=== PATIENT | female | born 1970 | race Two or more races ===

== ENCOUNTER 2017-01-15 02:12 | Day surgery (SDC) | payer OTHER ==
[~2017-01-15] VITALS: Ht 170.2 cm; Wt 70.5 kg
[2017-01-15] MEDS ORDERED: ONDANSETRON 4MG/2ML VIAL (J2405) IV ONE (03:30)
[2017-01-15] MEDS ORDERED: NS 1,000 ML IV ONE (03:30)
[2017-01-15] MEDS ORDERED: KETOROLAC 30 MG/ML VIAL (J1885) IV ONE (03:30)
[2017-01-15] MEDS ORDERED: MORPHINE 4 MG/ML 1ML SYRINGE IV PRN (03:30)
[2017-01-15 03:42] LABS: MEAN CORPUSCULAR HEMOGLOBIN 31.2 pg (27.0-33.0); MEAN CORPUSCULAR HGB CONC 34.3 g/dl (32.0-36.5); MEAN CORPUSCULAR VOLUME 91.2 fl (80.0-96.0); PLATELET COUNT, AUTOMATED 379 10^3/uL (150-450); RED CELL DISTRIBUTION WIDTH 12.2 % (11.5-14.5); WHITE BLOOD COUNT 25.4 10^3/uL (4.0-10.0)
[2017-01-15 03:43] LABS: ADD MANUAL DIFFER YES; DIFF SLIDE NUMBER 80
[2017-01-15] MEDS: MORPHINE 2 MG/ML 1ML SYRINGE IV PRN ×3 (03:45→09:34)
--- NOTE | 2017-01-15 03:50 | REPUSA ---
CLINICAL HISTORY: Abdominal pain. TECHNIQUE: Multiple axial, sagittal and coronal CT images were obtained through the abdomen and pelvi s without administration of oral or IV contrast material. COMMENTS: Comparison to the prior exam on 10/31/2015. Interval appearance of 4.5 mm obstructing stone of the left ureterovesical junction. Mild left hydrou reteronephrosis. Diffuse mesenteric thickening and soft tissue nodularity. 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 The liver is of uniform attenuation without mass or defect. There is no intra or extrahepatic biliary ductal dilatation. The spleen is normal. The gallbladder is within normal limits. The pancreas is of normal contour and attenuation characteristics. There is no evidence of adrenal mass. There is no evidence for appendicitis. There is no bowel wall thickening. No evidence for small or la rge bowel obstruction. There is no evidence of abdominal ascites or lymphadenopathy. There is no evidence of intrinsic or extrinsic bladder mass. There is no pelvic ascites or lymphadeno serafin. Uncomplicated diverticulosis of the colon. Images of the lung bases show no evidence of pleural or parenchymal mass. There are no pleural effusi ons. The bony structures are free of lytic or blastic lesions. Multilevel degenerative changes are seen in volving the thoracolumbar spine. Scattered calcifications are seen involving the aorta and major branches compatible with atherosclero sis. IMPRESSION: Obstructing stone of the left ureterovesical junction. Mild left hydroureteronephrosis. 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 Findings were not present on prior exam. Thank you for your kind referral of this patient.
[2017-01-15 04:11] LABS: ALBUMIN 4.1 GM/DL (3.2-5.2); ALBUMIN/GLOBULIN RATIO 1.24 (1.00-1.93); BILIRUBIN,DIRECT 0.2 MG/DL (0.0-0.2); BILIRUBIN,TOTAL 0.8 MG/DL (0.2-1.0); CALCIUM LEVEL 9.4 MG/DL (8.5-10.1); CREATININE FOR GFR 1.9 MG/DL (0.55-1.02); GLOMERULAR FILTRATION RATE 30.3 (>58); TOTAL PROTEIN 7.4 GM/DL (6.4-8.2)
[2017-01-15] MEDS ORDERED: CIPROFLOXACIN 400 MG in APPROPRIATE DILUENT 1 EA IV ONE (05:00)
[2017-01-15] MEDS ORDERED: TAMSULOSIN 0.4 MG CAP PO ONE (05:15)
[2017-01-15 09:15] VITALS: BP 134/84
[2017-01-15] MEDS: D5W/0.45% SODIUM CHLORIDE 1,000 ML IV SCH ×2 (09:33→16:11)
[2017-01-15] MEDS ORDERED: ONDANSETRON 4MG/2ML VIAL (J2405) IV PRN (10:00)
[2017-01-15] MEDS ORDERED: MORPHINE 2 MG/ML 1ML SYRINGE IV PRN (10:00)
[2017-01-15] MEDS ORDERED: ALPRAZolam 0.5 MG TAB PO PRN (14:30)
[2017-01-15] MEDS ORDERED: LORazepam 2 MG/ML VIAL (J2060) IV PRN (14:45)
[2017-01-15 16:00] VITALS: BP 116/72
[2017-01-15] MEDS ORDERED: CONRAY-60 60% 50ML VIAL (Q9961) As Ordered ONE (16:39)
[2017-01-15] MEDS ORDERED: BACT800T5 PO (16:59)
--- NOTE | 2017-01-15 18:20 | HPE ---
DATE OF ADMISSION: 01/15/2017 Time the patient was seen was 07:00 a.m. REASON FOR ADMISSION: Kidney stone with leukocytosis. The patient is a 46-year-old female who has a several day history of left lower back pain. She has noticed the pain every morning and has had some vomiting. The pain got so severe that she came to the emergency room today and a CT scan of the abdomen and pelvis showed a 4.5 mm left ureteral vesicle junction stone with mild left hydroureteronephrosis. The patient's pain was no better after morphine and she did have a white blood count of 25.4. After discussing all of the different options, alternatives, risks and benefits, it was decided to admit her for observation and then possibly to bring her to the operating room for ureteroscopic stone manipulation if she did not pass the stone prior to that. The CT scan showed no other significant stone. She denies any gross hematuria. She did have two stones which passed spontaneously a few years ago. She denies any burning with urination or problems with recurrent urinary tract infections. She denies any significant irritative or obstructive voiding symptoms. PAST MEDICAL HISTORY: Irritable bowel syndrome (IBS). PAST SURGICAL HISTORY: Laparoscopy to rule out endometriosis. MEDICATIONS: Aleve. ALLERGIES: No known drug allergies. SOCIAL HISTORY: She is a former smoker years ago. She drinks alcohol extremely rarely because this does hurt her abdomen. She denies any IV drug use. FAMILY HISTORY: Her father is 75 with a history of bladder cancer. REVIEW OF SYSTEMS: The 12-system review is negative except for severe abdominal pain which she has had for many years. She has seen gastroenterology (GI) specialists and has had colonoscopies and endoscopies and her diagnosis at this time is irritable bowel syndrome (IBS). PHYSICAL EXAMINATION: Her maximum temperature (T-max) is 98.8. Her pulse is 55. Her blood pressure is 124/77 and her respiratory rate is 18. This is a well-developed, well-nourished female in the emergency room in obvious pain, even after being given morphine 2 mg IV, she seems extremely uncomfortable. She is alert and oriented times three. Her head is normocephalic, atraumatic. Her eyes are pupils are equal, round, and reactive to light and accommodation (PERRLA) and extraocular muscles intact (EOMI). Her neck is supple and she has no significant supraclavicular or cervical adenopathy. Her heart has a regular rate and rhythm. Her lungs are clear to auscultation and percussion. She has no real costovertebral angle (CVA) tenderness on examination, but she does have some left lower back tenderness and some left lower abdominal tenderness. There is no rebound or guarding. Her extremities show no cyanosis, clubbing or edema. LABORATORY DATA: Her white blood count is elevated at 25.4. A urinalysis shows 4 white blood cells and 10 red blood cells per high-powered field and a urine culture is pending. Her BUN is 26 and her creatinine is elevated at 1.9. CT scan of the abdomen and pelvis does show mild left hydroureteronephrosis with a 4.5 mm left ureteral vesicle junction stone. 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 DISCUSSION: We discussed these findings at length in the office today and because she is still in significant pain, has an elevated white count of 25.4 and an elevated creatinine of 1.9 with vomiting and no pain relief after several doses of morphine, it was decided to bring her to the operating room. We will admit her for observation now and continue antibiotic therapy, IV hydration, pain management, and strain her urine until we can bring her to the operating room. We discussed that we would do a cystoscopy and stent placement and we discussed exactly how this is done. IMPRESSION: 1. A 4.5 mm left ureteral vesicle junction stone but with a white blood count of 25.4, acute renal failure with a creatinine of 1.9, vomiting, and unremitting pain. 2. Longstanding history of abdominal pain with irritable bowel syndrome (IBS) with a CT scan showing mesenteric panniculitis. 3. History of kidney stones several years ago and two passed spontaneously but no other stones were seen on the CAT scan. PLAN: 1. Admit the patient now for observation with IV hydration, antibiotic therapy, and pain medication. We will plan on bringing her to the operating room this afternoon for stone management. 2. The patient to discuss with her gastroenterology (GI) specialist the findings of the mesenteric panniculitis and other findings on the CT scan. 3. Await final urine culture. ADDENDUM: 01/15/2017 At 05:12 p.m., the patient had been on pediatrics waiting to go to the operating room today and she did end up passing her 4.5 mm left ureterovesical junction (UVJ) stone. The stone will be sent for analysis. She will be discharged home on Bactrim DS one tablet by mouth twice a day for seven days with instructions to followup in the office in one month to discuss stone prevention.
[2017-01-28 10:37] LABS: Size 4x3x3 mm (.)
== END 2017-01-15 17:40 | disposition home or self-care (01) ==
LOC: M ED 02:12 → M SDC 07:25 → M OPCLIPED 07:25 → M PED 09:07 → M SDC 17:40
PROVIDERS: ATTEND Specialist
DX: N20.1 Calculus of ureter (principal); Z53.09 Procedure and treatment not carried out because of other contraindication; N17.9 Acute kidney failure, unspecified; D72.829 Elevated white blood cell count, unspecified; Z87.891 Personal history of nicotine dependence

== ENCOUNTER 2022-07-23 04:13 | Observation (INO) | payer OTHER ==
[~2022-07-23] VITALS: Ht 170.2 cm; Wt 63.4 kg
[~2022-07-23 04:13] MED LIST: BACT800T5 PO
[2022-07-23 05:00] LABS: BASO # 0.1 10^3/uL (0.0-0.2); BASO % 1.1 % (0.0-1.0); EOS # 0.3 10^3/uL (0.0-0.5); HEMATOCRIT 45.2 % (36.0-47.0); HEMOGLOBIN 14.6 g/dl (12.0-15.5); LYMPH # 1.4 10^3/uL (1.5-5.0); LYMPH % 16.1 % (24.0-44.0); MEAN CORPUSCULAR HEMOGLOBIN 30.5 pg (27.0-33.0); MEAN CORPUSCULAR HGB CONC 32.3 g/dl (32.0-36.5); MEAN CORPUSCULAR VOLUME 94.6 fl (80.0-96.0); MONO # 0.6 10^3/uL (0.0-0.8); MONO % 7.5 % (2.0-8.0); NEUTROPHILS # 6.1 10^3/uL (1.5-8.5); NEUTROPHILS % 72.1 % (36.0-66.0); PLATELET COUNT, AUTOMATED 372 10^3/uL (150-450); RED BLOOD COUNT 4.78 10^6/uL (4.00-5.40); WHITE BLOOD COUNT 8.4 10^3/uL (4.0-10.0)
[2022-07-23] MEDS ORDERED: ONDANSETRON 4MG 2ML VIAL IV ONE (05:05)
[2022-07-23] MEDS ORDERED: MORPHINE 4 MG/ML 1ML VIAL IV PRN (05:05)
[2022-07-23 05:20] LABS: LIPASE 68 U/L (12-53)
[2022-07-23 05:23] LABS: ALBUMIN 4.2 G/DL (3.2-5.2); ALKALINE PHOSPHATASE 115 U/L (46-116); ALT/SGPT 28 U/L (7.0-40); AST/SGOT 29 U/L (<34); BILIRUBIN,DIRECT 0.1 MG/DL (<0.4); BILIRUBIN,TOTAL 0.4 MG/DL (0.3-1.2); BLOOD UREA NITROGEN 16 MG/DL (9-23); CARBON DIOXIDE LEVEL 28 MMOL/L (20-31); CHLORIDE LEVEL 109 MMOL/L (98-107); CREATININE FOR GFR 0.98 MG/DL (0.55-1.30); GLOMERULAR FILTRATION RATE > 60.0 (>51); GLUCOSE, FASTING 101 MG/DL (60-100); SODIUM LEVEL 142 MMOL/L (136-145); TOTAL PROTEIN 6.8 G/DL (5.7-8.2)
[2022-07-23] MEDS: GASTROGRAFIN SOLUTION 30ML PO SCH ×2 (06:27→06:28)
[2022-07-23] MEDS ORDERED: ISOVUE-370 76% 100ML VIAL As Ordered ONE (07:09)
[2022-07-23] MEDS ORDERED: HOME MED LIST COMPLETE! XX SCH (09:50)
[2022-07-23 10:28] LABS: RSV AMPLIFICATION NEGATIVE (NEGATIVE)
[2022-07-23] MEDS ORDERED: PERCOCET 5MG/325MG TAB PO PRN (11:00)
[2022-07-23] MEDS ORDERED: ACETAMINOPHEN TAB 650MG DOSE (2X325MG) PO PRN (11:00)
[2022-07-23 12:15] VITALS: BP 124/72
[2022-07-23 15:24] LABS: THYROID STIMULATING HORMONE 1.538 uIU/ML (0.55-4.78); TOTAL T3 112.4 NG/DL (60.0-181.0)
[2022-07-23 15:25] LABS: FREE T4 1.21 NG/DL (0.89-1.76)
[2022-07-23 22:00] VITALS: BP 120/76
[2022-07-24 06:00] VITALS: BP 119/63
[2022-07-24 08:11] LABS: BASO # 0.1 10^3/uL (0.0-0.2); BASO % 1.2 % (0.0-1.0); EOS # 0.1 10^3/uL (0.0-0.5); EOS % 0.8 % (0.0-3.0); HEMATOCRIT 43.7 % (36.0-47.0); HEMOGLOBIN 14.4 g/dl (12.0-15.5); LYMPH # 1.2 10^3/uL (1.5-5.0); LYMPH % 13.6 % (24.0-44.0); MEAN CORPUSCULAR HEMOGLOBIN 30.8 pg (27.0-33.0); MEAN CORPUSCULAR VOLUME 93.4 fl (80.0-96.0); MONO # 0.5 10^3/uL (0.0-0.8); MONO % 5.5 % (2.0-8.0); NEUTROPHILS # 6.7 10^3/uL (1.5-8.5); NEUTROPHILS % 78.7 % (36.0-66.0); PLATELET COUNT, AUTOMATED 368 10^3/uL (150-450); RED BLOOD COUNT 4.68 10^6/uL (4.00-5.40); WHITE BLOOD COUNT 8.5 10^3/uL (4.0-10.0)
[2022-07-24 08:46] LABS: BLOOD UREA NITROGEN 12 MG/DL (9-23); CALCIUM LEVEL 9.2 MG/DL (8.5-10.1); CARBON DIOXIDE LEVEL 27 MMOL/L (20-31); CHLORIDE LEVEL 108 MMOL/L (98-107); CREATININE FOR GFR 0.86 MG/DL (0.55-1.30); GLOMERULAR FILTRATION RATE > 60.0 (>51); GLUCOSE, FASTING 95 MG/DL (60-100); POTASSIUM SERUM 4.2 MMOL/L (3.5-5.1); SODIUM LEVEL 137 MMOL/L (136-145)
[2022-07-24] MEDS ORDERED: DICYCLOMINE 10 MG CAP PO SCH (09:00)
[2022-07-24] MEDS ORDERED: LIDOCAINE 1% MDV 20ML VIAL As Ordered ONE (12:54)
[2022-07-24 14:00] VITALS: BP 121/82
[2022-07-24] MEDS: METAMUCIL (PSYLLIUM) PACKET PO SCH (15:39)
[2022-07-24] MEDS ORDERED: DICYCLOMINE 10 MG CAP PO PRN (21:00)
[2022-07-24] MEDS ORDERED: AMITRIPTYLINE 25MG TABLET PO SCH (21:00)
[2022-07-24 21:30] VITALS: BP 119/79
[2022-07-25 05:29] VITALS: BP 118/78
[2022-07-25 07:38] LABS: HEMATOCRIT 44.6 % (36.0-47.0); HEMOGLOBIN 14.7 g/dl (12.0-15.5); MEAN CORPUSCULAR HEMOGLOBIN 31.2 pg (27.0-33.0); MEAN CORPUSCULAR VOLUME 94.7 fl (80.0-96.0); RED BLOOD COUNT 4.71 10^6/uL (4.00-5.40); WHITE BLOOD COUNT 6.4 10^3/uL (4.0-10.0)
[2022-07-25 07:41] LABS: PLATELET COUNT, AUTOMATED 245 10^3/uL (150-450)
[2022-07-25] MEDS: METAMUCIL (PSYLLIUM) PACKET PO SCH (08:58)
[2022-07-25] MEDS ORDERED: DICY1CAP8 PO (09:51)
[2022-07-25] MEDS ORDERED: AMIT25TA17 PO (09:51)
[2022-07-25] MEDS ORDERED: META1POW PO (09:51)
== END 2022-07-25 11:40 | disposition home or self-care (01) ==
LOC: M ED 04:13 → M ED INP 10:54 → ENRESERV 11:27 → M MS5PR 12:00
PROVIDERS: ADMIT Internal Medicine; ATTEND Internal Medicine
DX: C82.03 Follicular lymphoma grade I, intra-abdominal lymph nodes (principal); R10.9 Unspecified abdominal pain; R59.0 Localized enlarged lymph nodes; R91.1 Solitary pulmonary nodule; E04.1 Nontoxic single thyroid nodule; K58.8 Other irritable bowel syndrome; M51.17 Intervertebral disc disorders with radiculopathy, lumbosacral region; R63.4 Abnormal weight loss; F12.10 Cannabis abuse, uncomplicated
CPT/HCPCS: 36415; 49180; 71250; 74177; 76536; 77012; 80048; 80076; 81001; 83690; 84145; 84439; 84443; 84480; 85025; 85027; 87631; 88305; 93041; 96374; 96375; 99285; J2405; Q9963; Q9967

== ENCOUNTER → 2022-07-31 | Outpatient (CLI) | payer OTHER ==
[~2022-07-31] MED LIST changes: +AMIT25TA17 PO; +DICY1CAP8 PO; +META1POW PO
[2022-07-31 17:19] LABS: HEMOGLOBIN A1c 5.4 % (4.0-6.0)
[2022-07-31 17:32] LABS: CHOLESTEROL RISK RATIO 4.18 (<5); HDL CHOLESTEROL 49.2 MG/DL (>40); LDL CHOLESTEROL 117.2 MG/DL (<100); NON-HDL-C 156.8 MG/DL
== END ==
LOC: M PLALAB 15:32
PROVIDERS: ATTEND Student in an Organized Health Care Education/Training Program
DX: Z76.89 Persons encountering health services in other specified circumstances (principal)

== ENCOUNTER → 2022-08-28 | Outpatient (CLI) | payer OTHER ==
[~2022-08-28] MED LIST changes: +HYDR-3713 PO; +LIDOCAINE 1% MDV 20ML VIAL As Ordered ONE; +MIRA3350 PO; +ONDA4TAB6 PO
[2022-08-28 09:40] VITALS: BP 150/86
[2022-08-28 10:09] LABS: BASO # 0.1 10^3/uL (0.0-0.2); BASO % 1.4 % (0.0-1.0); EOS # 0.1 10^3/uL (0.0-0.5); HEMATOCRIT 42.3 % (36.0-47.0); HEMOGLOBIN 13.9 g/dl (12.0-15.5); LYMPH % 14.7 % (24.0-44.0); MEAN CORPUSCULAR HGB CONC 32.9 g/dl (32.0-36.5); MEAN CORPUSCULAR VOLUME 94.2 fl (80.0-96.0); MONO # 0.3 10^3/uL (0.0-0.8); MONO % 4.8 % (2.0-8.0); NEUTROPHILS # 5.4 10^3/uL (1.5-8.5); NEUTROPHILS % 77.8 % (36.0-66.0); PLATELET COUNT, AUTOMATED 347 10^3/uL (150-450); RED BLOOD COUNT 4.49 10^6/uL (4.00-5.40); WHITE BLOOD COUNT 6.9 10^3/uL (4.0-10.0)
== END ==
LOC: M IRPRO 08:25
PROVIDERS: ATTEND Internal Medicine Medical Oncology
DX: C85.80 Other specified types of non-Hodgkin lymphoma, unspecified site (principal)

== ENCOUNTER 2022-08-29 21:43 | Emergency (ER) | payer OTHER ==
[~2022-08-29] VITALS: Ht 167.6 cm; Wt 65.2 kg
[~2022-08-29 21:43] MED LIST changes: -HYDR-3713 PO; -LIDOCAINE 1% MDV 20ML VIAL As Ordered ONE; -MIRA3350 PO; -ONDA4TAB6 PO
[2022-08-29 22:55] LABS: BASO % 0.4 % (0.0-1.0); HEMATOCRIT 41.7 % (36.0-47.0); HEMOGLOBIN 13.6 g/dl (12.0-15.5); LYMPH % 8.9 % (24.0-44.0); MEAN CORPUSCULAR HEMOGLOBIN 30.3 pg (27.0-33.0); MEAN CORPUSCULAR HGB CONC 32.6 g/dl (32.0-36.5); MEAN CORPUSCULAR VOLUME 92.9 fl (80.0-96.0); MONO # 0.8 10^3/uL (0.0-0.8); MONO % 7.3 % (2.0-8.0); NEUTROPHILS # 9.3 10^3/uL (1.5-8.5); PLATELET COUNT, AUTOMATED 367 10^3/uL (150-450); RED BLOOD COUNT 4.49 10^6/uL (4.00-5.40); WHITE BLOOD COUNT 11.2 10^3/uL (4.0-10.0)
[2022-08-29 23:19] LABS: LIPASE 39 U/L (12-53)
[2022-08-29 23:21] LABS: ALBUMIN 4.3 G/DL (3.2-5.2); ALKALINE PHOSPHATASE 103 U/L (46-116); ALT/SGPT 32 U/L (7.0-40); AST/SGOT 32 U/L (<34); BILIRUBIN,DIRECT 0.2 MG/DL (<0.4); BILIRUBIN,TOTAL 0.7 MG/DL (0.3-1.2); BLOOD UREA NITROGEN 16 MG/DL (9-23); CALCIUM LEVEL 9.9 MG/DL (8.5-10.1); CARBON DIOXIDE LEVEL 30 MMOL/L (20-31); CHLORIDE LEVEL 101 MMOL/L (98-107); CREATININE FOR GFR 0.88 MG/DL (0.55-1.30); GLOMERULAR FILTRATION RATE > 60.0 (>51); GLUCOSE, FASTING 112 MG/DL (60-100); POTASSIUM SERUM 3.9 MMOL/L (3.5-5.1); SODIUM LEVEL 139 MMOL/L (136-145); TOTAL PROTEIN 7.2 G/DL (5.7-8.2)
[2022-08-30] MEDS ORDERED: ONDANSETRON 4MG TAB PO ONE (03:30)
[2022-08-30] MEDS ORDERED: ONDANSETRON 4MG ORAL DISINTEGRATING TAB PO ONE (03:35)
[2022-08-30] MEDS ORDERED: ONDANSETRON 4MG 2ML VIAL IV ONE (06:55)
[2022-08-30] MEDS ORDERED: NS 1,000 ML IV ONE (06:55)
[2022-08-30] MEDS ORDERED: MORPHINE 4 MG/ML 1ML VIAL IV ONE (06:55)
[2022-08-30] MEDS ORDERED: KETOROLAC 30 MG/ML 1ML VIAL IV ONE (09:25)
[2022-08-30] MEDS ORDERED: ONDA4TAB6 PO (09:31)
[2022-08-30] MEDS ORDERED: MIRA3350 PO (09:31)
[2022-08-30] MEDS ORDERED: HYDR-3713 PO (09:31)
[2022-08-30 09:38] VITALS: BP 145/63
== END 2022-08-30 10:10 | disposition home or self-care (01) ==
LOC: M ED 21:43
DX: R10.9 Unspecified abdominal pain (principal); R11.2 Nausea with vomiting, unspecified; C85.90 Non-Hodgkin lymphoma, unspecified, unspecified site; K58.9 Irritable bowel syndrome, unspecified; F32.A Depression, unspecified; Z79.899 Other long term (current) drug therapy
CPT/HCPCS: 80048; 80076; 83690; 85025; 93005; 96374; 96375; 99284; J1885; J2405